=== PATIENT | female | born 1965 ===

== ENCOUNTER 2024-05-10 09:20 | Day surgery (SDC) | payer OTHER ==
[~2024-05-10] VITALS: Ht 180.3 cm; Wt 97.8 kg
[~2024-05-10 09:20] MED LIST: Lactated Ringer's 1,000 ML IV ONE
[2024-05-10] MEDS ORDERED: Inderal60 MG (10:12)
[2024-05-10] MEDS ORDERED: BUTALB-ACETAMI1 EAC7 (10:12)
[2024-05-10] MEDS ORDERED: Lactated Ringer's 1,000 ML IV ONE (10:31)
[2024-05-10] MEDS ORDERED: propofoL 50 ML IV ONE (10:45)
== END 2024-05-10 11:53 | disposition home or self-care (01) ==
LOC: ORSCSDS 09:20
PROVIDERS: Internal Medicine Gastroenterology
PROC: 0DB58ZX Excision of Esophagus, Via Natural or Artificial Opening Endoscopic, Diagnostic (ICD-10-PCS; principal; 2024-05-10 10:45)
DX: K22.70 Barrett's esophagus without dysplasia (principal); F17.210 Nicotine dependence, cigarettes, uncomplicated; F32.A Depression, unspecified; E78.5 Hyperlipidemia, unspecified; K74.60 Unspecified cirrhosis of liver; J45.909 Unspecified asthma, uncomplicated; K21.9 Gastro-esophageal reflux disease without esophagitis; E66.9 Obesity, unspecified; Z68.30 Body mass index [BMI] 30.0-30.9, adult; Z79.899 Other long term (current) drug therapy
CPT/HCPCS: 88305; J2704; J7120